=== PATIENT | male | born 1960 | race Caucasian/White ===

== ENCOUNTER 2017-04-21 16:44 | Inpatient (IN) | payer OTHER, MEDICAID ==
[~2017-04-21] VITALS: Ht 182.9 cm; Wt 81.2 kg
--- NOTE | 2017-04-21 16:48 | NUR ---
PT AMBULATED TO BED 4.
[2017-04-21 16:51] VITALS: BP 158/93
--- NOTE | 2017-04-21 16:55 | NUR ---
56M BIB FAMILY C/O MID-CHEST PAIN, ACHING, NON-RADIATING, 10/11 X 0800 TODAY; PT STATES "IT HAPPENED SOON I WOKE UP"; PT WAS REFFERED TO ER BY URGENT CARE TODAY. PT C/O INTERMITTENT DRY COUGH X 1 MONTH, BUT STATES NO SHORTNESS OF BREATH AND NO DIFFICULTY BREATHING AT THIS TIME; BL LUNG SOUNDS CLEAR, RR EVEN/UNLABORED, EQUAL RISE/FALL OF CHEST NOTED AT THIS TIME; PT AA&OX4, PERRLA, STATES NO N/V/D AT THIS TIME; SKIN IS WARM/DRY/INTACT AT THIS TIME; STEADY GAIT; PT PLACED ON MONITOR, RESTING IN BED WITH HOB ELEVATED AND IN LOWEST POSITION; POSITIONED FOR COMFORT; ER MD MADE AWARE OF STATUS. WILL CONTINUE TO MONITOR.
--- NOTE | 2017-04-21 16:57 | NUR ---
ER MD DR. PIEDRA EVALUATING PT AT BEDSIDE.
[2017-04-21] MEDS ORDERED: NITROGLYCERIN 2% 1 GM PKT TP ONE (17:05)
[2017-04-21] MEDS ORDERED: ASPIRIN 81 MG TAB.CHEW PO ONE (17:05)
--- NOTE | 2017-04-21 17:15 | NUR ---
EKG AT BEDSIDE.
[2017-04-21] MEDS ORDERED: NACL 0.9% 1,000 ML IV SCH ×2 (17:53)
[2017-04-21] MEDS ORDERED: ACETAMINOPHEN 325 MG TAB PO PRN ×2 (17:55)
[2017-04-21] MEDS ORDERED: ONDANSETRON 4 MG/2 ML VIAL IVP PRN ×2 (17:55)
[2017-04-21] MEDS ORDERED: HYDROcodone/APAP 7.5/325 MG 1 TAB PO PRN ×2 (17:55)
[2017-04-21] MEDS ORDERED: NITROGLYCERIN 0.4 MG TAB SL PRN ×2 (17:55)
[2017-04-21] MEDS ORDERED: LOSA25TA22 PO (18:06)
--- NOTE | 2017-04-21 18:12 | NUR ---
AWAITING LAB RESULTS TO CALL REPORT PER ER MD DR. PIEDRA.
[2017-04-21 18:18] LABS: BASOPHILS # (AUTO) 0.4 K/uL (0.00-0.22); BASOPHILS % (AUTO) 3.9 % (0.0-2.0); EOSINOPHILS # (AUTO) 0.3 K/uL (0-0.4); EOSINOPHILS % (AUTO) 2.8 % (0.0-4.0); HEMATOCRIT 47.2 % (36-52); HEMOGLOBIN 15.7 g/dL (12.0-18.0); LYMPHOCYTES # (AUTO) 1.7 K/uL (2.0-11.5); LYMPHOCYTES % (AUTO) 18.9 % (20.5-51.1); MEAN CORPUSCULAR HEMOGLOBIN 30 pg (27-31); MEAN CORPUSCULAR HGB CONC 33 g/dL (33-37); MEAN CORPUSCULAR VOLUME 92 fL (80-94); MONOCYTES # (AUTO) 1.1 K/uL (0.8-1.0); MONOCYTES % (AUTO) 11.7 % (1.7-9.3); NEUTROPHILS # (AUTO) 5.7 K/uL (1.8-7.7); NEUTROPHILS % (AUTO) 62.7 % (42.2-75.2); PLATELET COUNT (AUTO) 366 K/uL (140-450); RED BLOOD CELL COUNT(AUTO) 5.15 MIL/uL (4.20-6.10); WHITE BLOOD COUNT (AUTO) 9.2 K/uL (4.8-10.8)
[2017-04-21 18:28] LABS: ANION GAP 13.4 (8-16); CARBON DIOXIDE 25.3 mmol/L (21-32); CREATININE 0.9 mg/dL (0.7-1.3); POTASSIUM 3.7 mmol/L (3.5-5.1)
[2017-04-21 18:31] LABS: PROTHROMBIN TIME 9.8 secs (10.8-13.4)
[2017-04-21 18:34] LABS: ALBUMIN 3.6 g/dL (3.4-5.0); TOTAL BILIRUBIN 0.4 mg/dL (0.0-1.0)
[2017-04-21 18:46] LABS: CHOL/HDL RATIO 4.2 (1-4.5); FREE T4 (FREE THYROXINE) 0.91 ng/dL (0.76-1.46); PHOSPHORUS 2.6 mg/dL (2.5-4.9); THYROID STIMULATING HORMONE 2.83 uIU/mL (0.34-3.74)
--- NOTE | 2017-04-21 18:52 | NUR ---
REPORT GIVEN TO TERESA WALDROP.
--- NOTE | 2017-04-21 18:53 | NUR ---
RECEIVED REPORT FROM ER NURSE SHAQUILLE. WILL WAIT FOR PT TO GO TO ROOM 110B.
[2017-04-21 19:03] LABS: APPEARANCE,URINE CLEAR (CLEAR); BILIRUBIN,URINE NEGATIVE (NEGATIVE); BLOOD, URINE NEGATIVE (NEGATIVE); COLOR,URINE YELLOW (YELLOW); NITRITE, URINE NEGATIVE (NEGATIVE); PH,URINE 6.5 (5.0-9.0); UGLUCOSE NEGATIVE (NEGATIVE)
--- NOTE | 2017-04-21 19:05 | NUR ---
PT ARRIVED TO UNIT VIA GURNEY ACCOMPANIED BY ER RNS. PT AMBULATED TO BED WITH STEADY GAIT. FAMILY MEMBER AT BEDSIDE. INSTRUCTED PT THAT HE NEEDED TO WEAR HOSPITAL GOWN AND REMOVE CLOTHES. PT AGREED TO CHANGE. TELE MONITOR APPLIED. ENDORSED PT TO GRANULATING BLENDER NURSE GUILLE AT BEDSIDE FOR CONTINUITY OF CARE. PT IN STABLE CONDITION.
--- NOTE | 2017-04-21 19:05 | NUR ---
Patient will be admitted to care of DR. POTTER. Admited to TELEMETRY. Will go to room 110B. Belongings list completed. Report to TERESA WALDROP.
[2017-04-21 19:09] LABS: LEUKOCYTE ESTERASE ,URINE TRACE (NEGATIVE); RBC,URINE 0-5 (RARE) /HPF (0-5); WBC,URINE 0-5 (RARE) /HPF (0-5)
[2017-04-21 19:10] LABS: BARBITURATE, URINE NEG. ng/ml (NEG <=200); BENZODIAZEPINE, URINE NEG. ng/mL (NEG <=200); CANNABINOID, URINE NEG. ng/mL (NEG <=50); COCAINE, URINE NEG. ng/mL (NEG <=300); OPIATE, URINE NEG. ng/mL (NEG <=2000); PHENCYCLIDINE SCREEN,URINE NEG. ng/mL (NEG <=25)
--- NOTE | 2017-04-21 19:49 | NUR ---
RECEIVED REPORT FROM AM NURSE. PT IS AAOX4, ON ROOM AIR. NO SIGNS OF ACUTE DISTRESS NOTED. FAMILY MEMBER AT THE BEDSIDE. SKIN COLOR APPROPRIATE TO ETHNICITY, SKIN TEMP WARN TO TOUCH. RESPIRATIONS EVEN AN UNLABORED. PT INSTRUCTED TO REMOVE CLOTHES AND LEAVE GOWN, PT UNDERSTOOD. TELE MONITOR IN PLACE. PLAN OF CARE DISCUSSED, PT VERBALIZED UNDERSTANDING. BED IN LOW POSITION, BILATERAL HALF SIDE RAILS UP, CALL LIGHT WITHIN REACH, WILL CONTINUE TO MONITOR.
[2017-04-21 20:00] VITALS: BP 120/55
[2017-04-21] MEDS ORDERED: METOPROLOL 25 MG TAB PO SCH (21:00)
[2017-04-21] MEDS ORDERED: DOCUSATE SODIUM 100 MG GELCAP PO SCH (21:00)
[2017-04-21] MEDS ORDERED: ATORVASTATIN 20 MG TAB PO SCH (21:00)
[2017-04-21] MEDS: ATORVASTATIN 20 MG TAB PO SCH ×2 (22:00→22:11)
[2017-04-21] MEDS: METOPROLOL 25 MG TAB PO SCH (22:00)
[2017-04-21] MEDS: DOCUSATE SODIUM 100 MG GELCAP PO SCH (22:01)
[2017-04-21] MEDS: PANTOPRAZOLE 40 MG TABEC PO SCH (22:10)
[2017-04-21] MEDS ORDERED: LOSARTAN 25 MG TAB PO SCH (22:10)
[2017-04-21] MEDS ORDERED: cefTRIAXone 1,000 MG VIAL ONE (23:00)
[2017-04-21] MEDS ORDERED: PANTOPRAZOLE 40 MG TABEC PO ONE (23:01)
--- NOTE | 2017-04-21 23:51 | NUR ---
PT REFUSED MEDICATIONS, PANTROPAZOLE AND LOSARTAN. B/P IS 108/66 THEREFORE PT REFUSED TO TAKE BLOOD PRESSURE MEDICATION. RISKS AND BENEFITS EXPLAINED, PT VERBALIZED UNDERSTANDING. PT STILL REFUSED MEDICATIONS. WILL CONTINUE TO MONITOR.
[2017-04-22] VITALS: BP 108/67
--- NOTE | 2017-04-22 03:33 | NUR ---
PT IS AWAKE, RESTING COMFORTABLY IN BED. NO SIGNS OF ACUTE DISTRESS. BED IN LOW POSITION, BILATERAL HALF SIDE RAILS UP, CALL LIGHT WITHIN REACH. WILL CONTINUE TO MONITOR.
[2017-04-22 04:00] VITALS: BP 96/61
--- NOTE | 2017-04-22 06:23 | NUR ---
PT IS AWAKE, RESTING COMFORTABLY IN BED. NO SIGNS OF ACUTE DISTRESS NOTED. RESPIRATIONS EVEN AND UNLABORED. BED IN LOW POSITION, BILATERAL HALF SIDE RAIL UP, CALL LIGHT WITHIN REACH, WILL CONTINUE TO MONITOR.
--- NOTE | 2017-04-22 07:15 | NUR ---
ENDORSED PT TO AM NURSE FOR CONTINUITY OF CARE. PT IN STABLE CONDITION.
[2017-04-22 07:20] LABS: BASOPHILS # (AUTO) 0.2 K/uL (0.00-0.22); BASOPHILS % (AUTO) 1.5 % (0.0-2.0); EOSINOPHILS # (AUTO) 0.1 K/uL (0-0.4); EOSINOPHILS % (AUTO) 0.8 % (0.0-4.0); HEMATOCRIT 44.8 % (36-52); HEMOGLOBIN 15.1 g/dL (12.0-18.0); LYMPHOCYTES % (AUTO) 16.6 % (20.5-51.1); MEAN CORPUSCULAR HEMOGLOBIN 31 pg (27-31); MEAN CORPUSCULAR HGB CONC 34 g/dL (33-37); MEAN CORPUSCULAR VOLUME 92 fL (80-94); MONOCYTES # (AUTO) 1.2 K/uL (0.8-1.0); MONOCYTES % (AUTO) 10.2 % (1.7-9.3); NEUTROPHILS # (AUTO) 8.3 K/uL (1.8-7.7); NEUTROPHILS % (AUTO) 70.9 % (42.2-75.2); PLATELET COUNT (AUTO) 341 K/uL (140-450); RED BLOOD CELL COUNT(AUTO) 4.89 MIL/uL (4.20-6.10); RED CELL DISTRIBUTION WIDTH 12.3 % (11.6-13.7); WHITE BLOOD COUNT (AUTO) 11.8 K/uL (4.8-10.8)
[2017-04-22 07:27] LABS: ANION GAP 12.7 (8-16); CARBON DIOXIDE 26.3 mmol/L (21-32); CREATININE 0.9 mg/dL (0.7-1.3)
--- NOTE | 2017-04-22 07:30 | NUR ---
RECEIVED REPORT FROM PM NURSE. PT GCS 15. BILATERAL PERRLA OBSERVED. DENIES PAIN. DENIES SOB. DENIES CHEST PAIN. LUNGS CLEAR ON AUSCULTATION. EQUAL, BILATERAL BREATH OBSERVED. VITALS WITHIN NORMAL. BOWEL SOUND PRESENT X 4 QUADRANT. ABDOMEN SOFT, NONTENDER. SKIN INTACT, WARM, DRY. ABLE TO AMBULATE WITH STEADY GAIT. ABLE TO VOID FREELY. IV 20 GAUGE NOTED. INTACT AND PATENT. NO S/SX OF ACUTE DISTRESS NOTED. FALL AND SAFETY PRECAUTION MAINTAINED. BED AT LOWEST SETTING. CALL LIGHT WITHIN REACH. WILL CONTINUE TO MONITOR FOR CHANGES.
[2017-04-22 07:38] LABS: MAGNESIUM 2.2 mg/dL (1.8-2.4)
[2017-04-22 08:00] VITALS: BP 100/66
[2017-04-22] MEDS: DOCUSATE SODIUM 100 MG GELCAP PO SCH (08:39)
[2017-04-22] MEDS: PANTOPRAZOLE 40 MG TABEC PO SCH (08:40)
[2017-04-22] MEDS: METOPROLOL 25 MG TAB PO SCH (08:41)
--- NOTE | 2017-04-22 08:44 | NUR ---
MEDICATION ADMINISTERED ORDERED. TOLERATED WELL.
[2017-04-22] MEDS ORDERED: LACTOBACILLUS RHAMNOSUS GG 1 EACH CAP PO SCH (09:00)
[2017-04-22] MEDS ORDERED: ASPIRIN 81 MG TAB.CHEW PO SCH ×2 (09:00)
[2017-04-22] MEDS ORDERED: PANTOPRAZOLE 40 MG INJ VIAL IVP SCH (09:00)
[2017-04-22] MEDS ORDERED: LISINOPRIL 5 MG TAB PO SCH ×2 (09:00)
--- NOTE | 2017-04-22 11:36 | NUR ---
PT LEFT AMA. AT BEDSIDE TO EXPLAIN RISK OF LEAVING AMA. RISK OF COMPLICATION EXPLAINED. PT VERBALIZED UNDERSTANDING. DENIES CHEST PAIN. DENIES SOB. PT STATES "I NEED TO LEAVE NOW FOR WORK". LEFT VIA PRIVATE VEHICLE WITH .
[2017-04-22] MEDS ORDERED: LACT1.4C PO (15:06)
[2017-04-22] MEDS ORDERED: CIPR500T4 PO (15:06)
[2017-04-22] MEDS ORDERED: ATORVASTATIN 20 MG TAB PO SCH (21:00)
== END 2017-04-22 11:30 | disposition left against medical advice (07) | DRG 206 ==
LOC: MED 16:44 → MTU 18:06
PROVIDERS: ADMIT Family Medicine Sports Medicine; ATTEND Family Medicine Sports Medicine
DX: M94.0 Chondrocostal junction syndrome [Tietze] (principal); E78.5 Hyperlipidemia, unspecified; N39.0 Urinary tract infection, site not specified; K21.9 Gastro-esophageal reflux disease without esophagitis; I10 Essential (primary) hypertension; Z53.21 Procedure and treatment not carried out due to patient leaving prior to being seen by health care provider; Z79.899 Other long term (current) drug therapy; Z82.49 Family history of ischemic heart disease and other diseases of the circulatory system
CPT/HCPCS: 36415; 71010; 80048; 80053; 80305; 81001; 82150; 83036; 83690; 83735; 83880; 84100; 84439; 84443; 84484; 85025; 85610; 85730; 87081; 93005; 99285; J0696; J7030; J7060; Q0092